=== PATIENT | male | born 1945 | race Caucasian/White ===

== ENCOUNTER 2017-05-28 08:26 | Outpatient (CLI) | payer MEDICARE, OTHER ==
[~2017-05-28] VITALS: Ht 180.3 cm; Wt 88.6 kg
--- NOTE | ~2017-05-28 | HEMODYNAMI ---
PATIENT:BAKARI HIGHTOWER MEDICAL RECORD: [id number] : 49 LOCATION:[facility] ADMISSION DATE: 05/28/17 Generatedon:05/28/201710:29 Patient name: BAKARI HIGHTOWER Patient #: [id number] SSN: : 1945 Date of study: 05/28/2017 Page: Of Hemodynamic Procedure Report Patient Data Patient Demographics Procedure consent was obtained First Name: BAKARI Gender: Male Last Name: KATJA : 1945 Middle Initial: LESLI Age: 71 year(s) Patient #: [id number] Race: Additional ID: [id number] Contact details [address]: [address] [place] [address] State: [place] City: [place] Zip code: [address] Past Medical History Allergies Allergen Reaction Date Comments Reported Penicillins 04/26/2015 Admission Admission Data Admission Date: 05/28/2017 Admission Time: 8:26 Procedure Procedure Types Cath Procedure Diagnostic Procedure LHC LHC w/Coronaries FFR/IVUS Intra-Coronary IVUS Initial PCI Procedure Coronary Stent Initial Miscellaneous Procedures Moderate Sedation up to 30 minutes Procedure Description Procedure Date Procedure Date: 05/28/2017 Procedure Start Time: 10:08 Procedure End Time: 10:28 Procedure Staff Name Function Aman Aquino MD Performing Physician Jesus Castellon RT Scrub Norah Reina RT Scrub Steffen Munoz RN Nurse Sabrina Gray RT Monitor Procedure Data Cath Procedure Fluoroscopy Diagnostic fluoroscopy Total fluoroscopy Time: 3.9 time: 3.9 min min Diagnostic fluoroscopy Total fluoroscopy dose: 557 dose: 557 mGy mGy Contrast Material Contrast Material Type Amount (ml) Isovue 300 90 Entry Location Entry Primary Successful Side Size Upsize Upsize Entry Closure Prabhakar ccessful Closure Location (Fr) 1 (Fr) 2 (Fr) Remarks Device Remarks Radial Right 6 Fr Mechanical artery Short Compression Estimated blood loss: 10 ml Diagnostic catheters Device Type Used For End Catheter Placement Terumo 5Fr Brent 110cm LV Angiography catheter Terumo 5Fr Brent 110cm Left Coronary catheter Angiography Terumo 5Fr Brent 110cm Right Coronary catheter Angiography Procedure Complications No complications Procedure Medications Medication Administration Route Dosage Oxygen NC 2 l/min Heparin Flush Bag added to field 2 bags (1000units/500ml NS) 0.9% NaCl I.V. 100 ml/hr Radial Cocktail added to field 1 syringe (Verapomil 2mg/Nitro 400mcg/Heparin 1500units) Fentanyl I.V. 50 mcg Versed I.V. 1 mg Radial Cocktail I.A. 1 syringe (Verapomil 2mg/Nitro 400mcg/Heparin 1500units) Fentanyl I.V. 50 mcg Versed I.V. 1 mg Heparin Bolus I.V. 4000 units Hemodynamics Rest Heart Rate: 90 (bpm) Snapshots Pre Cath Intra NCS Post Cath Vital Signs Time Heart Resp SPO2 etCO2 MK4oncx NIBP (mmHg) Rhythm Pain Sedation Rate (ipm) (%) (mmHg) (mmHg) Status Level (bpm) 9:57:06 85 16 98 0 0 134/88(104) NSR 0 (11) 10(A) , No pain 10:01:16 81 16 97 0 0 127/78(106) NSR 0 (11) 10(A) , No pain 10:05:23 68 19 93 0 0 124/79(107) NSR 0 (11) 10(A) , No pain 10:09:33 80 17 92 0 0 120/69(108) NSR 0 (11) 10(A) , No pain 10:13:41 79 17 91 0 0 101/69(84) NSR 0 (11) 10(A) , No pain 10:17:45 86 12 90 0 0 104/63(78) NSR 0 (11) 10(A) , No pain 10:21:48 85 13 92 0 0 112/64(83) NSR 0 (11) 10(A) , No pain 10:25:54 81 13 97 0 0 113/65(81) NSR 0 (11) 10(A) , No pain Medications Time Medication Route Dose Verified Delivered Reason Note s Effectiveness by by 9:59:12 Oxygen NC 2 l/min Steffen Bourne Per physician Alexander Munoz RN RN 9:59:40 Heparin Flush added 2 bags Steffen Bourne used for Bag to Alexander Munoz RN procedure (1000units/500ml field RN NS) 9:59:52 0.9% NaCl I.V. 100 Steffen Steffen Per physician ml/hr Alexander Munoz RN RN 10:00:05 Radial Cocktail added 1 Steffen Steffen used for (Verapomil to syringe Alexander Munoz RN procedure 2mg/Nitro field RN 400mcg/Heparin 1500units) 10:09:23 Fentanyl I.V. 50 mcg Steffen Perezy for sedation Alexander Munoz RN RN 10:09:30 Versed I.V. 1 mg Steffen Steffen for sedation Alexander Munoz RN RN 10:11:14 Radial Cocktail I.A. 1 Steffen Aman for (Verapomil syringe Alexander qAuino MD vasodilation 2mg/Nitro RN 400mcg/Heparin 1500units) 10:11:26 Fentanyl I.V. 50 mcg Steffen Bourne for sedation Alexander Munoz RN RN 10:11:33 Versed I.V. 1 mg Steffen Bourne for sedation Alexander Munoz RN RN 10:16:49 Heparin Bolus I.V. 4000 Steffen Steffen for units Alexander Munoz RN anticoagulation lay brother Log Time Note 9:39:34 Jesus Castellon RT(R) sent for patient. Start room use. 9:39:43 Time tracking: Regular hours 9:39:51 Plan of Care:Hemodynamics will remain stable., Cardiac rhythm will remain stable., Comfort level will be maintained., Respiratory function will remain adequate., Patient/ family verbilizes understanding of procedure., Procedure tolerated without complication., Recovers from procedure without complications.. 9:48:47 Patient received from Pre/Post Procedure Room to [facility] 1 Alert and oriented. Tansferred to table in Supine position. 9:48:49 Warm blankets applied, and toño hugger turned on for patient comfort. 9:48:49 Correct patient and procedure confirmed by team. 9:48:51 Signed procedure consent form obtained from patient. 9:48:52 ECG and BP/O2 sat monitors applied to patient. 9:48:53 Full Disclosure recording started 9:56:03 Vital chart was started 9:57:35 Rhythm: sinus rhythm 9:57:53 H&P Date Dictated: 05/23/2017 Within 30 days and on chart., H&P Addendum completed by physician on day of procedure. (MUST COMPLETE FOR ALL OUTPATIENTS). 9:57:55 Pre-procedure instructions explained to patient. 9:57:55 Pre-op teaching completed and patient verbalized understanding. 9:57:57 Family in waiting room. 9:57:58 Patient NPO since Midnight. 9:58:00 Is the patient allergic to Iodine/contrast media? No. 9:58:03 Is patient on blood thinner?Yes 9:58:07 ACC The patient was administered the following blood thiners within the last 24 hours: ACCPlavix 9:58:08 Patient diabetic? Yes. 9:58:10 If diabetic: On Metformin? Yes 9:58:12 If on Metformin: Last Dose? 05/26/2017 9:58:14 Previous problem with sedation/anesthesia? No ? 9:58:16 Snore? No 9:58:17 Sleep apnea? No 9:58:18 Deviated septum? No 9:58:19 Opens mouth fully? Yes 9:58:20 Sticks out tongue? Yes 9:58:23 Airway obstruction? No ? 9:58:25 Dentures? No ? 9:58:27 Pre procedure: right dorsailis pedis pulse 1+ Palpable, but thready & weak; easily obliterated 9:58:30 Modified Tiburcio's test Ulnar < 7 seconds 9:58:33 Patient pain scale 0/10 ?. 9:58:39 IV patent on arrival in left forearm with 0.9% NaCl at KVO. 9:58:41 Lab results completed and on chart. 9:58:44 Right Radial & Right Groin area was prepped with chlora-prep and draped in sterile fashion 9:58:47 Alarms reviewed by R. N. 9:58:48 Sharps counted by scrub and verified by R.N. 9:59:12 Oxygen 2 l/min NC was administered by Steffen Munoz RN; Per physician; 9:59:40 Heparin Flush Bag (1000units/500ml NS) 2 bags added to field was administered by Steffen Munoz RN; used for procedure; 9:59:52 0.9% NaCl 100 ml/hr I.V. was administered by Steffen Munoz RN; Per physician; 10:00:05 Radial Cocktail (Verapomil 2mg/Nitro 400mcg/Heparin 1500units) 1 syringe added to field was administered by Steffen Munoz RN; used for procedure; 10:01:11 Use device set Radial Dx 10:01:12 Acist Syringe opened to sterile field. 10:01:13 Medline Cath Pack opened to sterile field. 10:01:13 Bag Decanter opened to sterile field. 10:01:14 St [place] 260cm J .035 wire opened to sterile field. 10:01:14 Acist Hand Control opened to sterile field. 10::14 Acist Manifold opened to sterile field. 10:01:15 Tegaderm 4 x 4 opened to sterile field. 10:01:15 MBrace Wrist Support opened to sterile field. 10:02:23 Merit Prelude Radial Sheath (NO COST SUPPLY) opened to sterile field. 10:05:13 Final Timeout: patient, procedure, and site verified with staff and physician. All members of the team are in agreement. 10:05:18 Right Radial site verified by team. 10:05:22 Physical assessment completed. ASA score P 2 - A patient with mild systemic disease as per Aman Aquino MD. 10:05:25 Sedation plan: IV Moderate Sedation Versed, Fentanyl 10:08:14 Procedure started. 10:08:20 Local anesthetic to right radial artery with Lidocaine 2% by Aman Aquino MD.INITIAL ACCESS ONLY 10:08:37 Zero performed for pressure channel P1 10:08:54 A 6 Fr Short sheath was inserted into the Right Radial artery 10:09:23 Fentanyl 50 mcg I.V. was administered by Steffen Munoz RN; for sedation; 10:09:30 Versed 1 mg I.V. was administered by Steffen Munoz RN; for sedation; 10:10:40 A Terumo 5Fr Brent 110cm catheter was advanced over the wire and used for LV Angiography. 10:10:50 Baseline sample Acquired. 10:11:14 Radial Cocktail (Verapomil 2mg/Nitro 400mcg/Heparin 1500units) 1 syringe I.A. was administered by Aman Aquino MD; for vasodilation; 10:11:26 Fentanyl 50 mcg I.V. was administered by Steffen Munoz RN; for sedation; 10:11:33 Versed 1 mg I.V. was administered by Steffen Munoz RN; for sedation; 10:11:41 LV gram done using HERNANDEZ 10:11:45 Injector settings: Ml/sec: 5, Volume: 15, 10:11:51 EF : 60 % 10:12:52 A Terumo 5Fr Brent 110cm catheter was advanced over the wire and used for Right Coronary Angiography. 10:14:05 A Terumo 5Fr Brent 110cm catheter was advanced over the wire and used for Left Coronary Angiography.removed unable to cannulate. 10:14:13 Cordis 6FR XBLAD 3.5 guide catheter opened to sterile field. 10:14:43 6 Fr XBLAD 3.5 guide catheter was inserted over the wire 10:14:47 LCA angiography performed. 10:15:09 Hewitt Whisper J 300cm 0.014 guide wire opened to sterile field. 10:15:10 Care Thread BasixCompak Inflation Kit opened to sterile field. 10:15:25 [place] IVUS Catheter opened to sterile field. 10:15:37 Whisper wire advanced. 10:16:15 IVUS catheter advanced over wire. 10:16:49 Heparin Bolus 4000 units I.V. was administered by Steffen Munoz RN; for anticoagulation; 10:17:47 IVUS pass to Circ lesion performed. 10:18:59 IVUS catheter removed over wire. 10:21:19 Inflation Number: 1 A Warner OTW 3.0 x 18 stent was prepped and advanced across the Prox CX. The stent was deployed at 13 SVETLANA for 0:07 (min:sec). 10:21:37 Stent catheter was removed intact over wire. 10:21:37 Wire removed. 10:21:38 Guide catheter removed. 10:21:47 Sheath removed intact; hemostasis achieved with Mechanical Compression to the Right Radial artery. 10:21:49 Procedure ended.(Physican Out) 10:21:59 Fluoroscopy time 03.90 minutes. 10:22:02 Fluoroscopy dose: 557 mGy 10:22:02 Flurop Dose total: 557 10:22:05 Contrast amount:Isovue 300 90ml. 10:22:07 Sharps counted by scrub and verified by R.N. 10:22:10 TR band inflated with 12cc of air. 10:22:11 Insertion/operative site no bleeding no hematoma. 10:22:19 Post right radial artery:stable, clean and dry 10:22:20 Post Procedure Pulses reassessed and unchanged 10:22:23 Post-procedure physical assessment completed. ASA score P 2 - A patient with mild systemic disease as per Aman Aquino MD. 10:22:25 Post procedure rhythm: unchanged. 10:22:27 Estimated blood loss: 10 ml 10:22:29 Post procedure instruction explained to patient.Patient verbalizes understanding. 10:22:29 Patient needs reinforcement of post procedure teaching. 10:22:53 Procedure type changed to Cath procedure, Diagnostic procedure, LHC, LHC w/Coronaries, FFR/IVUS, Intra-Coronary IVUS Initial, PCI procedure, Coronary Stent Initial, Miscellaneous Procedures, Moderate Sedation up to 30 minutes 10:22:59 Procedure Complication : No complications 10:23:26 Terumo TR Band Standard opened to sterile field. 10:24:51 Procedure and supply charges have been captured, reviewed, submitted and are correct. 10:24:52 See physician's report for complete and final results. 10:28:35 Report given to Pre/Post Procedure Room. 10:28:39 Patient transfered to Pre/Post Procedure Room with Stretcher. 10:28:49 Procedure ended. 10:28:49 Full Disclosure recording stopped 10:28:52 End room use (Document Last) 10:29:06 Vital chart was stopped Intervention Summary Intervention Notes Time ActionType Lesion and Equipment Action# Pressure Duration Attributes Used 10:21:19 Place stent Prox CX Warner OTW 1 13 00:08 3.0 x 18 stent Device Usage Item Name Manufacture Quantity Catalog Hospital Part Current Minim al Lot# / Number Charge Number Stock Stock Serial# Code Acist Acist 1 82897 390211 372460 770993 20 Syringe Medical Systems Inc Medline Cardinal 1 [id number] 844996 86111 975608 5 Cath Pack Health Bag Microtek 1 2001S 153556 72124 093427 [address] Ocrby 1 103310 549447 168212 065275 30 260cm J .035 wire Acist Hand Acist 1 83813 019491 295994 467794 5 Control Medical Systems Inc Acist Acist 1 43503 774581 799880 631546 5 Manifold Medical Systems Inc Tegaderm 4 3M 1 1626W 136257 233488 410358 5 x 4 MBrace Advanced 1 140-0250-00 978951 66702 206047 5 Wrist Vascular Support Dynamics Merit Merit 1 [id number] 164893 042530 5 Prelude Medical Radial Sheath (NO COST SUPPLY) Diagnostic Terumo 1 40-8223 372590 100284 567424 5 Terumo 5Fr [place] 110cm catheter Terumo 5Fr Terumo 2 40-2801 666111 041128 926555 5 Brent 110cm catheter Cordis 6FR Cardinal 1 [id number] 525530 958225 146363 10 XBLAD 3.5 Health guide catheter Hewitt Hewitt 1 [id number] 021110 732449 180142 5 Whisper J Vascular 300cm 0.014 guide wire Merit Merit 1 [id number] 931559 586375 243867 15 BasixComCodaricak Medical Inflation Kit [place] 1 [id number] 352855 056395 254364 8 [place] IVUS Catheter Warner OTW Medtronic 1 [id number] 111406 3491247 505931 5 [id number] 3.0 x 18 stent Terumo TR Terumo 1 [id number] 642311 253209 814542 40 Band Standard Signature Audit [place] Stage Time Signature Unsigned Intra-Procedure 05/28/2017 Sabrina 10:29:03 AM Counts RT(R) Signatures Monitor : Sabrina Signature : Counts RT Date : Time : [facility] [address] [place] [address]
[~2017-05-28 08:26] MED LIST: BAYER CHEWABLE81 MG PO; CO Q-10200 MG PO; GLUCOPHAGE500 MG PO; LIPITOR10 MG PO; LIPITOR20 MG PO; LISINOPRIL2.5 MG PO; MULTIPLE VITAMI1 TA1 PO; PLAVIX75 MG PO; VITAMIN A10000 UNIT; XALATAN 0.0052.5 ML LEFT EYE
[2017-05-28] MEDS ORDERED: CLARITIN 10 MG10 MG PO (08:45)
[2017-05-28 08:47] VITALS: Ht 180.3 cm; Wt 88.6 kg
[2017-05-28] MEDS ORDERED: FLUTICASONE PRO16 GM NASAL (09:03)
[2017-05-28 09:18] LABS: ANION GAP 14.6 mmol/L (8-16); CALCIUM 8.6 mg/dL (8.5-10.1); CARBON DIOXIDE 24.5 mmol/L (21.0-32.0); CREATININE - SERUM 1.1 mg/dL (0.6-1.3); POTASSIUM - SERUM 4.1 mmol/L (3.5-5.1)
[2017-05-28 09:44] LABS: BASOPHILS 0.6 % (0-2); EOSINOPHILS 4.9 % (0-7); HEMOGLOBIN 14.9 g/dL (13.5-17.5); IMMATURE GRANULOCYTES 0.2 % (0-5); LYMPHOCYTES 18.4 % (15-50); MCH 32.5 pg (26.0-34.0); MCHC 34.7 g/dL (31.0-37.0); MCV 93.9 fL (80.0-100.0); NEUTROPHILS 67.9 % (40-80); PLATELET COUNT 190 10x3/uL (130-400); RBC 4.58 10x6/uL (4.20-6.10); RDW 12.3 % (11.5-14.5); WBC 5.2 10x3/uL (4.8-10.8)
--- NOTE | 2017-05-28 10:40 | NUR ---
1040 RECIEVED TO ROOM VIA STRETCHER FROM INSIDE SALES TRAINER WITH REPORT OF ONE STENT TO THE CIRC. TR BAND TO R/WRIST CDI NO BLEEDING NO HEMATOMA NOTED. NSR RATE 80 BP 102/88 CHEST PAIN IS DENIED FAMILY AT SIDE
--- NOTE | 2017-05-28 11:00 | NUR ---
VSS WITH CHEST PAIN DENIED TR BAND TO R/WRIST CDI NO BLEEDING NO HEMATOMA NOTED. FAMILY AT SIDE
--- NOTE | 2017-05-28 11:19 | NUR ---
RESTING QUIETLY WITH EYES CLOSED VSS NO DISTRESS NOTED TR BAND REMAINS TO R/WRIST CDI
--- NOTE | 2017-05-28 12:01 | NUR ---
PATIENT SLEEPING QUIETLY WITH EYES CLOSED NO DISTRESS NOTED VSS TR BAND REMAINS TO R/WRIST CDI NO BLEEDING NO HEMATOMA NOTED.FAMILY AT SIDE
--- NOTE | 2017-05-28 12:31 | NUR ---
NO CHANGE IN ASSESSMENT CONTINUES TO SLEEP
--- NOTE | 2017-05-28 12:52 | NUR ---
TR BAND REMAINS TO R/WRIST CDI CHEST PAIN IS DENIED. VSS AT THIS TIME PATIENT VOIDS 400 CC CLEAR YELLOW URINE TO COLLECTION
--- NOTE | 2017-05-28 13:34 | NUR ---
2 CC AIR REMOVED FROM TR BAND WITH NO BLEEDING NO HEMATOMA NOTED
--- NOTE | 2017-05-28 13:45 | NUR ---
1345 2 CC AIR REMOVED FROM TR BAND WITH NO BLEEDING NO HEMATOMA NOTED 1410 2 CC AIR REMOVED FROM TR BAND WITH NO BLEEDING NO HEMATOMA NOTED PIV REMOVED WITH DRESSING APPLIED. PATIENT DENIED CHEST PAIN. UP TO GET DRESSED FOR DISCHARGE
--- NOTE | 2017-05-28 14:23 | NUR ---
TR BAND REMOVED WITH DRESSING APPLIED. NO BLEEDING NO HEMATOMA NOTED CHEST PAIN IS DENIED. VERBAL AND WRITTEN DISCHARGE GONE OVER WITH PATIENT AND BOTH VERBALIZED UNDERSTANDING. LEFT VIA WC TO PARKING FOR TO DRIVE HOME
--- NOTE | 2017-05-31 13:34 | OP ---
PATIENT NAME: BAKARI HIGHTOWER MEDICAL RECORD: [id number] :49 LOCATION:[facility] ADMISSION DATE: SURGEON: KERON KING MD DATE OF OPERATION: 05/28/2017 PROCEDURES: 1. PTCA stent left circumflex. 2. Left heart catheterization. 3. Selective coronary angiography. 4. Left ventriculogram. 5. Intravascular ultrasound. PROCEDURE IN DETAIL: After informed consent was obtained and after detailed explanation of risks, benefits as well as alternative therapies, the patient elected to proceed with angiogram and angioplasty. The right radial area was prepped and draped in normal sterile fashion. The right radial artery was cannulated via modified Seldinger technique with placement of 6-Irish sheath. All catheters exchanged through this sheath. FINDINGS: The left ventriculogram was performed in standard 30-degree HERNANDEZ view, reveals good cardiac wall motion throughout all segments. Overall ejection fraction estimated at 60%. SELECTIVE CORONARY ANGIOGRAPHY: 1. Left main showed no significant angiographic disease. 2. Left anterior descending has previously placed stent with no significant restenosis. No disease elsewise throughout the LAD or its branches. 3. Left circumflex has a 73% stenosis confirmed by intravascular ultrasound in the mid vessel. 4. Right coronary has mild irregularities, but no flow-limiting stenosis. PTCA STENT OF THE LEFT CIRCUMFLEX: The stent used was a 3.0 x 18 mm Jelani. Result was 0% residual stenosis. OVERALL IMPRESSION: Successful percutaneous transluminal coronary angioplasty stent of the left circumflex going from 70% initial stenosis to 0% residual. TRANSINT:[id number] Voice Confirmation ID: [id number] DOCUMENT ID: [id number] KERON KING MD at 1334 CC: [id number] DICTATION DATE: 05/28/17 1025 NANOTECHNOLOGY ENGINEERING TECHNICIAN: 05/28/17 1203 DEP CLI 05/28/17 [place] [address]
== END 2017-05-28 14:25 | disposition home or self-care (01) ==
LOC: D.CATH 08:26
PROVIDERS: Internal Medicine Interventional Cardiology
DX: I25.119 Atherosclerotic heart disease of native coronary artery with unspecified angina pectoris (principal); Z95.5 Presence of coronary angioplasty implant and graft; Z01.812 Encounter for preprocedural laboratory examination

== ENCOUNTER 2018-02-13 21:53 | Observation (INO) | payer MEDICARE, OTHER ==
[~2018-02-13] VITALS: Ht 180.3 cm; Wt 89.7 kg
--- NOTE | ~2018-02-13 | OP ---
PATIENT NAME: BAKARI HIGHTOWER MEDICAL RECORD: [id number] :49 LOCATION:D.M2 D.2118 ADMISSION DATE:02/14/18 SURGEON: BAKARI LUCERO MD DATE OF OPERATION: 02/14/2018 PROCEDURE: Left heart catheterization, selective coronary angiography, right radial and right femoral artery approach. CATHETERS: A 5-Citizen [place] sheath on the right side, radial sheath on the right arterial side and right radial side. The procedure was tolerated and the patient was returned to osorio. Sheath was removed. Adequate hemostasis. ExoSeal device was placed. FINDINGS: Left ventriculography in 30-degree HERNANDEZ view: Normal wall motion. Normal systolic function. CORONARY ANATOMY: LEFT MAIN: Left main is free of disease. LAD: LAD, an area of previous stenting is widely patent. No evidence of progression of hamilton stenosis. CIRCUMFLEX: Circumflex large vessel, free of disease. RIGHT CORONARY ARTERY: Codominant system free of disease. IMPRESSION: Patent stent, no progression of hamilton disease, no evidence of restenosis. TRANSINT:[id number] Voice Confirmation ID: [id number] DOCUMENT ID: [id number] BAKARI LUCERO MD at 1214 CC: [id number] DICTATION DATE: 02/14/18 1428 INSURANCE ADMINISTRATOR: 02/14/185 DIS IN 02/15/[address] [address]
--- NOTE | ~2018-02-13 | HEMODYNAMI ---
PATIENT:CRUZITO HIGHTOWER MEDICAL RECORD: [id number] : 49 LOCATION:[place] [address] ADMISSION DATE: 02/14/18 Generatedon:02/14/201814:25 Patient name: CRUZITO HIGHTOWER Patient #: [id number] SSN: : 1945 Date of study: 02/14/2018 Page: Of Hemodynamic Procedure Report Patient Data Patient Demographics Procedure consent was obtained First Name: CRUZITO Gender: Male Last Name: KATJA : 1945 [facility] Initial: LESLI Age: 72 year(s) Patient #: [id number] Race: Additional ID: [id number] Contact details Address: [address] State: [place] City: [place] Zip code: [address] Past Medical History Allergies Allergen Reaction Date Comments Reported Penicillins 04/26/2015 Admission Admission Data Admission Date: 02/14/2018 Admission Time: 0:14 Room #: [facility] Lab Results Lab Result Date: 02/14/2018 Lab Result Time: 0:00 Biochemistry Name Units Result Min Max BUN mg/dl 11 --(-*--)-- 7 18 Creatinine mg/dl 1 --(--*-)-- 0.6 1.3 CBC Name Units Result Min Max Hemoglobin g/dl 14 --(*---)-- 13.5 17.5 Procedure Procedure Types Cath Procedure Diagnostic Procedure [facility] w/Coronaries Sedation Charges Moderate Sedation up to 15 minutes Procedure Description Procedure Date Procedure Date: 02/14/2018 Procedure Start Time: 14:05 Procedure End Time: 14:24 Procedure Staff Name Function Steffen Munoz RN Surgical Assistant Cruzito Hazel MD Performing Physician Bianca Heard RT Monitor Norah Reina RT Scrub Pauly Brito RN Nurse Procedure Data Cath Procedure Fluoroscopy Diagnostic fluoroscopy Total fluoroscopy Time: 6.1 time: 6.1 min min Diagnostic fluoroscopy Total fluoroscopy dose: 638 dose: 638 mGy mGy Contrast Material Contrast Material Type Amount (ml) Isovue 300 58 Entry Location Entry Primary Successful Side Size Upsize Upsize Entry Closure Prabhakar ccessful Closure Location (Fr) 1 (Fr) 2 (Fr) Remarks Device Remarks Radial Right 6 Fr Manual artery Short Compression Femoral Right 5 Fr Exoseal artery Estimated blood loss: 10 ml Diagnostic catheters Device Type Used For End Catheter Placement DIAGNOSTIC Bardolph 110cm 5 Procedure Fr catheter ([id number]) DIAGNOSTIC JL 3.5 5Fr Procedure catheter ([id number]) DIAGNOSTIC Pigtail 5Fr Procedure catheter ([id number]) Procedure Complications No complications Procedure Medications Medication Administration Route Dosage Oxygen NC 2 l/min Lidocaine 2% added to field 20 Heparin Flush Bag added to field 2 bags (1000units/500ml NS) 0.9% NaCl I.V. 100 ml/hr Versed I.V. 1 mg Fentanyl I.V. 50 mcg Versed I.V. 1 mg Fentanyl I.V. 50 mcg Versed I.V. 1 mg Radial Cocktail I.A. 1 syringe (Verapomil 2mg/Nitro 400mcg/Heparin 1500units) Hemodynamics Rest Heart Rate: 47 (bpm) Pressure Samples Time Site Value (mmHg) Purpose Heart Use Rate(bpm) 14:20 LV 98/5,9 Snapshot 68 14:21 AO 106/72(90) Pullback 56 14:21 LV 96/18,19 Pullback 56 Gradients Valve Time Site 1 Site 2 Mean SEP/DFP Peak To Heart Use (mmHg) (sec/min) Peak Rate (mmHg) (bpm) Aortic 14:21 LV AO 0 56 96/18,19 106/72(90) Calculations Valve P-P Mean Valve Index Valve Source Name Gradient Area Flow (cm2) Aortic 0 0 Snapshots Pre Cath Intra NCS Post Cath Vital Signs Time Heart Resp SPO2 etCO2 NIBP Rhythm Pain Sedation Rate (ipm) (%) (mmHg) (mmHg) Status Level (bpm) 14:05:54 67 16 98 0 123/75(89) NSR 0 (11) 10(A) , No pain 14:10:08 73 17 97 0 107/67(88) NSR 0 (11) 10(A) , No pain 14:14:26 76 21 94 0 112/61(85) NSR 0 (11) 10(A) , No pain 14:18:40 69 15 95 0 105/56(76) NSR 0 (11) 10(A) , No pain 14:22:58 68 15 98 0 108/50(98) NSR 0 (11) 10(A) , No pain Medications Time Medication Route Dose Verified Delivered Reason Notes Effectiveness by by 13:59:26 Oxygen NC 2 l/min Cruzito Coats used for [facility] Brito RN procedure 13:59:33 Lidocaine 2% added 20ml Cruzito Cruzito for local to vial [facility] anesthetic field MD BAIG 13:59:39 Heparin Flush added 2 bags Cruzito East used for Bag to [facility] procedure (1000units/500ml field MD BAIG NS) 14:01:04 0.9% NaCl I.V. 100 Cruzito Coats Per ml/hr [facility] fatima MD 14:06:00 Versed I.V. 1 mg Cruzito Coats for sedation [facility] Brito RN, MD 14:06:06 Fentanyl I.V. 50 mcg Cruzito Coats for sedation [facility] Brito RN, MD 14:06:22 Radial Cocktail I.A. 1 Cruzito East for (Verapomil syringe [facility] vasodilation 2mg/Nitro MD BAIG 400mcg/Heparin 1500units) 14:09:27 Versed I.V. 1 mg Cruzito Coats for sedation [facility] Brito RN, MD 14:09:31 Fentanyl I.V. 50 mcg Cruzito Coats for sedation [facility] Brito RN, MD 14:17:07 Versed I.V. 1 mg Cruzito Coats for sedation [facility] Brito RN, MD Procedure Log Time Note 13:40:21 Steffen Munoz RN sent for patient. Start room use. 13:52:27 Time tracking: Regular hours (M-F 7:00 - 5:00) 13:52:30 Plan of Care:Hemodynamics will remain stable., Cardiac rhythm will remain stable., Comfort level will be maintained., Respiratory function will remain adequate., Patient/ family verbilizes understanding of procedure., Procedure tolerated without complication., Recovers from procedure without complications.. 13:52:35 Patient received from Med II to CCL 2 Alert and oriented. Tansferred to table in Supine position. 13:52:36 Warm blankets applied, and toño hugger turned on for patient comfort. 13:52:36 Correct patient and procedure confirmed by team. 13:52:38 Signed procedure consent form obtained from patient. 13:52:39 ECG and BP/O2 sat monitors applied to patient. 13:52:45 H&P Date Dictated: 02/14/2018 Within 30 days and on chart.. 13:53:05 Lab Result : BUN 11 mg/dl 13:53:05 Lab Result : Hemoglobin 14 g/dl 13:53:05 Lab Result : Creatinine 1 mg/dl 13:59:26 Oxygen 2 l/min NC was administered by Pauly Brito RN; used for procedure; 13:59:33 Lidocaine 2% 20ml vial added to field was administered by Cruzito Hazel MD; for local anesthetic; 13:59:39 Heparin Flush Bag (1000units/500ml NS) 2 bags added to field was administered by Cruzito Hazel MD; used for procedure; 14:01:04 0.9% NaCl 100 ml/hr I.V. was administered by Pauly Brito RN; Per physician; 14:03:59 Lab results completed and on chart. 14:04:07 Vital chart was started 14:04:08 Baseline sample Acquired. 14:04:13 Rhythm: sinus rhythm 14:04:15 Full Disclosure recording started 14:04:18 Family in waiting room. 14:04:20 Family in waiting room. 14:04:22 Patient NPO since Midnight. 14:04:26 Is the patient allergic to Iodine/contrast media? No. 14:04:28 Was the patient premedicated? Yes 14:04:30 Is patient on blood thinner?Yes 14:04:39 Patient diabetic? Yes. 14:04:43 If diabetic: On Metformin? Yes 14:04:46 If on Metformin: Last Dose? 02/13/2018 14:04:51 Snore? Yes 14:04:52 Sleep apnea? No 14:04:57 Dentures? No ? 14:05:02 Patient pain scale 0/10 ?. 14:05:07 IV patent on arrival in left forearm with 0.9% NaCl at [facility]. 14:05:12 Right Radial & Right Groin area was prepped with chlora-prep and draped in sterile fashion 14:05:13 Alarms reviewed by R. N. 14:05:13 Sharps counted by scrub and verified by R.N. 14:05:14 Physician paged 14:05:15 Physician arrived 14:05:15 --------ALL STOP TIME OUT------ 14:05:16 Final Timeout: patient, procedure, and site verified with staff and physician. All members of the team are in agreement. 14:05:22 Right Radial & Right Groin site verified by team. 14:05:26 Physical assessment completed. ASA score P 2 - A patient with mild systemic disease as per Cruzito Hazel MD. 14:05:30 Sedation plan: IV Moderate Sedation Medication:Versed, Fentanyl 14:05:35 Use device set Femoral Dx 14:05:37 Procedure started. 14:05:44 Local anesthetic to right radial artery with Lidocaine 2% by Cruzito Hazel MD.INITIAL ACCESS ONLY 14:05:55 A 6 Fr Short sheath was inserted into the Right Radial artery 14:05:59 ACIST Syringe (72076) opened to sterile field. 14:06:00 Versed 1 mg I.V. was administered by Pauly Brito RN; for sedation; 14:06:00 Bag Decanter (2002S) opened to sterile field. 14:06:01 Medline Cath Pack ([id number]) opened to sterile field. 14:06:02 DIAGNOSTIC WIRE .035 260cm J wire (244219) opened to sterile field. 14:06:04 ACIST Hand Control (94831) opened to sterile field. 14:06:04 ACIST Manifold (73414) opened to sterile field. 14:06:06 Fentanyl 50 mcg I.V. was administered by Pauly Brito RN; for sedation; 14:06:07 Tegaderm 4 x 4 (1626W) opened to sterile field. 14:06:08 PERCUTANEOUS ENTRY 19GA needle opened to sterile field. 14:06:19 SHEATH 6Fr Prelude Radial ([id number]) opened to sterile field. 14:06:22 Radial Cocktail (Verapomil 2mg/Nitro 400mcg/Heparin 1500units) 1 syringe I.A. was administered by Cruzito Hazel MD; for vasodilation; 14:06:25 J wire advanced. 14:06:27 Zero performed for pressure channel P1 14:06:54 A DIAGNOSTIC Bardolph 110cm 5 Fr catheter (895269) was advanced over the wire and used for Procedure. 14:09:27 Versed 1 mg I.V. was administered by Pauly Brito RN; for sedation; 14:09:31 Fentanyl 50 mcg I.V. was administered by Pauly Brito RN; for sedation; 14:11:52 RCA angiography performed. 14:12:58 GUIDE 6FR EBU 3.5 catheter ([id number]) opened to sterile field. 14:13:55 Catheter exchanged over wire. 14:14:16 GUIDE 6FR XBLAD 3.5 catheter ([id number]) opened to sterile field. 14:16:08 unable to cannulate through the arm. going femoral. 14:16:39 SHEATH Prelude 5Fr 0.035 ([id number]-9U-[id number]) opened to sterile field. 14:16:46 Local anesthetic to right femoral artery with Lidocaine 2% by Cruzito Hazel MD.ADDITIONAL ACCESS 14:17:07 Versed 1 mg I.V. was administered by Pauly Brito RN; for sedation; 14:17:16 A 5 Fr sheath was inserted into the Right Femoral artery 14:17:41 A DIAGNOSTIC JL 3.5 5Fr catheter ([id number]) was advanced over the wire and used for Procedure. 14:17:54 LCA angiography performed. 14:19:58 A DIAGNOSTIC Pigtail 5Fr catheter (394201V) was advanced over the wire and used for Procedure. 14:20:06 LV angiography performed. 14:21:14 EF : 55 % 14:21:34 EXOSEAL 5Fr (EX500) opened to sterile field. 14:21:35 TR BAND Standard ([id number]) opened to sterile field. 14:21:43 Catheter removed. 14:21:56 Sheath removed intact; hemostasis achieved with Exoseal to the Right Femoral artery. 14:22:05 Sheath removed intact; hemostasis achieved with Manual Compression to the Right Radial artery. 14:22:08 Procedure ended.(Physican Out) 14:22:46 Fluoroscopy time 06.10 minutes. 14::53 Fluoroscopy dose: 638 mGy 14:22:53 Flurop Dose total: 638 14:22:57 Contrast amount:Isovue 300 58ml. 14:22:59 Sharps counted by scrub and verified by R.N. 14:23:09 TR band inflated with 13cc of air. 14:23:11 Insertion/operative site no bleeding no hematoma. 14:23:13 Post Procedure Pulses reassessed and unchanged 14:23:26 Post-procedure physical assessment completed. ASA score P 2 - A patient with mild systemic disease as per Cruzito Hazel MD. 14:23:31 Post procedure rhythm: sinus rhythm 14:23:33 Estimated blood loss: 10 ml 14:23:35 Post procedure instruction explained to patient.Patient verbalizes understanding. 14:23:45 Procedure type changed to Cath procedure, Diagnostic procedure, LHC, LHC w/Coronaries, Sedation Charges, Moderate Sedation up to 15 minutes 14:23:48 Procedure and supply charges have been captured, reviewed, submitted and are correct. 14:24:13 Procedure Complication : No complications 14:24:17 Vital chart was stopped 14:24:18 See physician's report for complete and final results. 14:24:20 Report given to Med II. 14:24:25 Patient transfered to Med II with Stretcher. 14:24:37 Procedure ended. 14:24:37 Full Disclosure recording stopped Device Usage Item Name Manufacture Quantity Catalog Number Hospital Part Current M inimal Lot# / Charge Number Stock Stock Serial# Code ACIST Syringe Acist 1 33358 914444 843169 276248 2 0 (49931) [employer] Bag Decanter Microtek 1 2001S 811376 86184 509257 5 (2001S) Medical Inc. Medline Cath Cardinal 1 [id number] 841141 36648 280553 5 [facility] ([id number]) DIAGNOSTIC WIRE [facility] [place] 1 476203 349299 024953 881175 3 0 .035 260cm J wire (786408) ACIST Hand Acist 1 91402 008814 252480 492310 5 Control (06378) [employer] ACIST Manifold Acist 1 29760 465699 786044 017387 5 (73040) [employer] Tegaderm 4 x 4 3M 1 1626W 313584 997515 431410 5 (1626W) PERCUTANEOUS Cook Medical 1 [id number] 367851 043710 5 ENTRY 19GA needle SHEATH 6Fr Merit 1 [id number] 031792 136148 951736 5 Prelude Radial Medical ([id number]) DIAGNOSTIC Terumo 1 19-2377 739472 474718 485572 5 Bardolph 110cm 5 Fr catheter (494354) GUIDE 6FR EBU Medtronic 1 [id number] 410320 09856 696419 3 3.5 catheter ([id number]) GUIDE 6FR XBLAD Cardinal 1 [id number] 983082 380970 920997 1 0 3.5 catheter Health ([id number]) SHEATH Prelude Merit 1 [id number] 288782 720200 446383 5 5Fr 0.035 Medical (CUF-0A-92-035) DIAGNOSTIC JL Cardinal 1 [id number] 954809 726543 989452 5 3.5 5Fr Health catheter (554597C) DIAGNOSTIC Cardinal 1 [id number] 830712 469664 250107 5 Pigtail 5Fr Health catheter (895417S) EXOSEAL 5Fr Cardinal 1 EX500 279607 411284 193852 1 0 (EX500) Health TR BAND Terumo 1 [id number] 449281 647350 172968 4 0 Standard ([id number]) Signature Audit [place] Stage Time Signature Unsigned Intra-Procedure 02/14/2018 Bianca Heard 2:25:30 PM RT(R) Signatures Monitor : Bianca Heard Signature : RT Date : Time : [place] [id number] [place] [address]
[~2018-02-13 21:53] MED LIST changes: +CLARITIN 10 MG10 MG PO; +FLUTICASONE PRO16 GM NASAL
[2018-02-13 22:30] LABS: BASOPHILS 0.4 % (0-2); HEMATOCRIT 39.3 % (42.0-54.0); IMMATURE GRANULOCYTES 0.1 % (0-5); LYMPHOCYTES 28.9 % (15-50); MCH 33.1 pg (26.0-34.0); MCHC 35.6 g/dL (31.0-37.0); MCV 92.9 fL (80.0-100.0); MEAN PLATELET VOLUME 9.4 fL (7.4-10.4); MONOCYTES 7.4 % (2-11); NEUTROPHILS 59.2 % (40-80); PLATELET COUNT 176 10x3/uL (130-400); RBC 4.23 10x6/uL (4.20-6.10); RDW 12.2 % (11.5-14.5); WBC 6.8 10x3/uL (4.8-10.8)
[2018-02-13 22:53] LABS: ALBUMIN 3.7 g/dL (3.4-5.0); ALKALINE PHOSPHATASE 58 U/L (46-116); ALT (SGPT) 31 U/L (10-68); BILIRUBIN - TOTAL 0.63 mg/dL (0.2-1.3); CALC OSMOLALITY 274 mosm/kg (275-300); CALCIUM 8.9 mg/dL (8.5-10.1); CARBON DIOXIDE 21.7 mmol/L (21.0-32.0); CHLORIDE - SERUM 103 mmol/L (98-107); GLUCOSE 173 mg/dL (74-106); SODIUM 136 mmol/L (136-145); UREA NITROGEN 11 mg/dL (7-18); eGFR NON AFRICAN AMERICAN 78 mL/min (90-120)
[2018-02-13 23:04] LABS: CKMB 1.2 U/L (0.0-3.6); CREATINE KINASE 173 UL (21-232)
[2018-02-13 23:09] LABS: TROPONIN-I < 0.017 ng/mL (0.000-0.060)
[2018-02-14 00:55] LABS: APTT 29.2 SECONDS (22.8-39.4); PROTIME 12.8 SECONDS (11.6-15.0)
[2018-02-14 01:06] LABS: CREATINE KINASE 161 UL (21-232)
[2018-02-14] MEDS ORDERED: COZAAR25 MG PO (01:06)
[2018-02-14 01:07] LABS: TROPONIN-I < 0.017 ng/mL (0.000-0.060)
[2018-02-14] MEDS ORDERED: SIMBRINZA 1%-0.28 ML LEFT EYE (01:08)
[2018-02-14 01:12] VITALS: BP 109/64; BMI 26.8
[2018-02-14 04:00] VITALS: BP 117/67
[2018-02-14 07:40] LABS: CKMB 1.1 U/L (0.0-3.6); CREATINE KINASE 159 UL (21-232)
[2018-02-14 07:49] LABS: TROPONIN-I < 0.017 ng/mL (0.000-0.060)
[2018-02-14 08:50] VITALS: Ht 180.3 cm; Wt 89.7 kg
[2018-02-14 09:09] VITALS: BP 114/57
[2018-02-14 09:17] LABS: BASOPHILS 0.5 % (0-2); EOSINOPHILS 5.5 % (0-7); HEMOGLOBIN 14.3 g/dL (13.5-17.5); IMMATURE GRANULOCYTES 0.2 % (0-5); LYMPHOCYTES 38.5 % (15-50); MCH 32.7 pg (26.0-34.0); MCHC 34.9 g/dL (31.0-37.0); MCV 93.8 fL (80.0-100.0); MEAN PLATELET VOLUME 9.7 fL (7.4-10.4); MONOCYTES 8.9 % (2-11); NEUTROPHILS 46.4 % (40-80); PLATELET COUNT 197 10x3/uL (130-400); RBC 4.37 10x6/uL (4.20-6.10); RDW 12.1 % (11.5-14.5); WBC 6.5 10x3/uL (4.8-10.8)
[2018-02-14 09:22] LABS: CALC OSMOLALITY 280 mosm/kg (275-300); CALCIUM 9.5 mg/dL (8.5-10.1); CARBON DIOXIDE 25.7 mmol/L (21.0-32.0); CHLORIDE - SERUM 104 mmol/L (98-107); GLUCOSE 132 mg/dL (74-106); POTASSIUM - SERUM 4.5 mmol/L (3.5-5.1); SODIUM 140 mmol/L (136-145); UREA NITROGEN 12 mg/dL (7-18); eGFR NON AFRICAN AMERICAN 78 mL/min (90-120)
[2018-02-14 11:53] VITALS: BP 103/59
[2018-02-14 16:50] VITALS: BP 115/69
[2018-02-14 20:07] LABS: APPEARANCE CLEAR (CLEAR); BILIRUBIN NEGATIVE (NEGATIVE); COLOR YELLOW (YELLOW); GLUCOSE NEGATIVE (NEGATIVE); KETONE NEGATIVE (NEGATIVE); NITRITE NEGATIVE (NEGATIVE); PROTEIN NEGATIVE (NEGATIVE); UROBILINOGEN NORMAL (NORMAL)
[2018-02-14 20:30] VITALS: BP 140/74; BP 146/75; BP 152/78
[2018-02-15 01:26] VITALS: BP 101/47
[2018-02-15 05:37] VITALS: BP 179/77
[2018-02-15 06:09] LABS: BASOPHILS 0.7 % (0-2); EOSINOPHILS 4.2 % (0-7); HEMATOCRIT 39.1 % (42.0-54.0); HEMOGLOBIN 13.6 g/dL (13.5-17.5); IMMATURE GRANULOCYTES 0.2 % (0-5); LYMPHOCYTES 34.2 % (15-50); MCH 32.5 pg (26.0-34.0); MCHC 34.8 g/dL (31.0-37.0); MCV 93.5 fL (80.0-100.0); MEAN PLATELET VOLUME 9.6 fL (7.4-10.4); MONOCYTES 9.3 % (2-11); NEUTROPHILS 51.4 % (40-80); PLATELET COUNT 169 10x3/uL (130-400); RBC 4.18 10x6/uL (4.20-6.10); RDW 12.2 % (11.5-14.5); WBC 5.9 10x3/uL (4.8-10.8)
[2018-02-15 06:32] LABS: ANION GAP 14.3 mmol/L (8-16); CALCIUM 9.1 mg/dL (8.5-10.1); CARBON DIOXIDE 23.9 mmol/L (21.0-32.0); CREATININE - SERUM 1.1 mg/dL (0.6-1.3); POTASSIUM - SERUM 4.2 mmol/L (3.5-5.1)
[2018-02-15 08:43] VITALS: BP 133/86
== END 2018-02-15 08:56 ==
LOC: D.ER 21:53 → D.M2 02-14 00:14 → OBSVTIME 02-14 00:14 → D.M2 02-14 00:14
PROVIDERS: Family Medicine; Internal Medicine Interventional Cardiology; Internal Medicine Nephrology
DX: I24.9 Acute ischemic heart disease, unspecified (principal); I10 Essential (primary) hypertension; E78.5 Hyperlipidemia, unspecified; E11.9 Type 2 diabetes mellitus without complications; I25.10 Atherosclerotic heart disease of native coronary artery without angina pectoris